=== PATIENT | female | born 1965 | race Caucasian/White ===

== ENCOUNTER 2020-05-23 09:24 | Emergency (ER) | payer OTHER, MEDICAID ==
[~2020-05-23] VITALS: Ht 162.6 cm; Wt 96.0 kg
[2020-05-23 09:33] VITALS: BP 119/79
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
--- NOTE | 2020-05-23 10:44 | RAD ---
EXAM: Lumbar spine CT without contrast. HISTORY: Left lower extremity radiculopathy. Back pain. TECHNIQUE: Computed tomographic images of the lumbar spine were obtained without contrast. Multiplanar reformatting was performed. *One or more of the following individualized dose reduction techniques were utilized for this examination: 1. Automated exposure control. 2. Adjustment of the mA and/or kV according to patient size. 3. Use of iterative reconstruction technique. COMPARISON: None. FINDINGS: There is lumbar scoliosis. There is no listhesis. There is degenerative endplate remodeling with disc space narrowing, osteophytosis, Schmorl's node formation and vacuum phenomenon at L4-L5, and to lesser extent, L5-S1. There is no suspicious osseous lesion. There is no fracture. At L1-L2, there is no stenosis. At L2-L3, there is no stenosis. At L3-L4, there is no stenosis. At L4-L5, there are left paracentral to foraminal and right foraminal to extra foraminal disc osteophyte complexes superimposed on a disc bulge and endplate osteophytosis. There is mild bilateral facet arthropathy. There is moderate right and moderate to severe left foraminal stenosis. There is mild central canal stenosis. At L5-S1, there is a broad-based posterior central disc protrusion superimposed on a disc bulge and endplate osteophytosis. There is moderate right and moderate to severe left foraminal stenosis. IMPRESSION: 1. Multilevel degenerative change involving the lumbar spine, described in detail above. This results in moderate right and moderate to severe left foraminal and mild central canal stenosis an mild central canal stenosis at L4-L5 and moderate right and moderate to severe left foraminal stenosis at L5-S1. 2. No acute osseous finding. Electronically signed by: Alma Delia Alford MD (05/23/2020 10:41 AM) [facility]
== END 2020-05-23 11:15 | disposition home or self-care (01) ==
LOC: ER 09:24
DX: M48.061 Spinal stenosis, lumbar region without neurogenic claudication (principal); G89.29 Other chronic pain; M54.5 Low back pain; M17.12 Unilateral primary osteoarthritis, left knee
CPT/HCPCS: 72131; 99284

== ENCOUNTER 2020-07-19 04:34 | Emergency (ER) | payer MEDICARE, MEDICAID ==
[~2020-07-19] VITALS: Ht 162.6 cm; Wt 96.0 kg
--- NOTE | 2020-07-19 04:47 | PHYS DOC ---
Past History Past Medical History: Arthritis Additional Past Medical Histor: ENLARGED HEART, BLADDER PROBLEMS Alcohol Use: Sober Adult General HPI HPI Patient is a 55-year-old female with a history of anxiety, depression and arthritis who presents with a chief complaint of left eye pain and swelling. States that she noticed some mild redness and swelling yesterday afternoon, and went to bed about 10:00 last night. States she woke up an hour before coming to the emergency department with her eyes swollen shut. States she has generalized dull achy pain, constant in nature, 7 out of 10. States she is able to see out of the eye but light causes her discomfort and causes her to tear up. States she is never had anything like this before. Denies any recent trauma, travels, illnesses, fevers, headache, neck pain, chest pain, shortness of breath, abdominal pain, nausea, vomiting. States that she did see her primary care physician 5 days ago and was told she had shingles on the side of her face and a UTI. States she was started on Keflex for the UTI but nothing else. States that the shingles actually started going away and was almost gone and then this popped up. Review of Systems Review of Systems Review of systems otherwise unremarkable except noted in HPI. Allergies Allergies Allergies Coded Allergies Type Severity Reaction Last Updated Verified quetiapine Allergy Unknown 05/23/20 Yes Physical Exam Physical Exam Constitutional: Well developed, well nourished, no acute distress, non-toxic appearance. [] HENT: Normocephalic, atraumatic, bilateral external ears normal, oropharynx moist, no oral exudates, nose normal. [] Eyes: PERRLA, EOMI, conjunctiva normal, no discharge in the right eye. [] The left eye has conjunctivitis and chemosis with a reactive pupil. Has periorbital swelling, erythema and tenderness. Consensual photophobia. When opening eye patient has grossly normal vision but states it hurts to open her eye. Patient would not allow fluorescein stain exam or Nikko-Pen. Neck: Normal range of motion, no tenderness, supple, no stridor. [] Cardiovascular:Heart rate regular rhythm, no murmur [] Skin: Warm, dry, no erythema, no rash. [] Back: No tenderness, no CVA tenderness. [] Neurologic: Alert and oriented X 3, normal motor function, normal sensory function, no focal deficits noted. [] Psychologic: Affect normal, judgement normal, mood normal. [] EKG EKG [] Radiology/Procedures Radiology/Procedures []MPRESSION: 1. There is left orbit preseptal soft tissue swelling. There is left frontal scalp soft tissue swelling. There is subcutaneous edema and swelling of the left maxilla/cheek. There is subcutaneous edema of the lateral left face superficial to the parotid gland. Findings may be due to cellulitis or trauma. No subcutaneous abscess is seen. 2. No obvious abnormality of the globes or post septal orbits. Electronically signed by: Niraj Olmstead MD (07/19/2020 5:48 AM) [facility] Heart Score Risk Factors: Risk Factors: DM, Current or recent (<one month) smoker, HTN, HLP, family history of CAD, obesity. Risk Scores: Risk Factors: DM, Current or recent (<one month) smoker, HTN, HLP, family history of CAD, obesity. Course & Med Decision Making Course & Med Decision Making Patient is a 55-year-old female who presents with left eye pain, redness and swelling per day. States she was told that she had shingles on the left side of her face 5 days ago that over the last couple of days seemed to resolved Vital signs notable for tachycardia. Physical exam noted above. Patient given morphine for pain started on Unasyn for possible orbital cellulitis and given a dose of valacyclovir for possible zoster ophthalmicus. Patient declined fluorescein exam and Nikko-Pen exam due to pain. Laboratory analysis notable for leukocytosis. CT of the max face notable for significant preseptal cellulitis with facial cellulitis and edema. Discussed all findings with patient and recommended admission/transfer to [facility] for immediate ophthalmological evaluation. Patient grateful, verbalized understanding and agreed with plan of transfer. [] Dragon Disclaimer Dragon Disclaimer This electronic medical record was generated, in whole or in part, using a voice recognition dictation system. Departure Departure: Impression: Primary Impression: Eye pain Additional Impressions: Zoster ophthalmicus Periorbital cellulitis of left eye Facial cellulitis Disposition: 02 DC/TRF OTHER SHORT TERM HOS Condition: IMPROVED Referrals: KRISTIE DORANTES (PCP) Patient Instructions: Periorbital Cellulitis Problem Qualifiers BUFFY HENNESSY MD Jul 19, 2020 04:47
[2020-07-19] MEDS ORDERED: IV NORMAL SALINE 100ML 100 ML ONE (04:50)
[2020-07-19] MEDS ORDERED: MORPHINE SULFATE 4 MG/ML DISP.SYRIN. ONE (04:50)
[2020-07-19] MEDS ORDERED: AMPICILLIN/SULBACTAM 1.5 GM VIAL. IV ONE (04:50)
[2020-07-19] MEDS ORDERED: AMPICILLIN/SULBACTAM 3 GM in IV NORMAL SALINE 100ML 100 ML IV ONE (05:00)
[2020-07-19] MEDS ORDERED: MORPHINE SULFATE 4 MG/ML DISP.SYRIN. IV ONE ×2 (05:00→07:15)
[2020-07-19] MEDS ORDERED: IOHEXOL 300 MG/ML 75 ML VIAL. IV ONE (05:00)
[2020-07-19] MEDS ORDERED: CONTRAST GIVEN. MC PRN (05:00)
[2020-07-19 05:01] LABS: BASO % 0 % (0-3); EOS % 0 % (0-3); HEMATOCRIT 32.6 % (36.0-47.0); HEMOGLOBIN 10.5 g/dL (12.0-15.5); LYMPH # 2.1 x10^3/uL (1.0-4.8); LYMPH % 18 % (24-48); MEAN CORPUSCULAR HEMOGLOBIN 26 pg (25-35); MEAN CORPUSCULAR HGB CONC 32 g/dL (31-37); MEAN CORPUSCULAR VOLUME 80 fL (79-100); MONO # 1.2 x10^3/uL (0.0-1.1); MONO % 10 % (0-9); NEUT # 8.5 x10^3uL (1.8-7.7); NEUT % 71 % (31-73); PLATELET COUNT 337 x10^3/uL (140-400); RED BLOOD COUNT 4.08 x10^6/uL (3.50-5.40); RED CELL DISTRIBUTION WIDTH 16.1 % (11.5-14.5)
[2020-07-19 05:09] LABS: CALCIUM 9.4 mg/dL (8.5-10.1); CREATININE 0.8 mg/dL (0.6-1.0); GFR 74.7; POTASSIUM 3.6 mmol/L (3.5-5.1)
[2020-07-19 05:25] LABS: % LYMPHS 17 % (24-48); % MONOS 9 % (0-10); % SEGS 74 % (35-66); PLT ESTIMATE ADEQUATE (ADEQUATE)
[2020-07-19 05:26] LABS: TOXIC GRANULATION SLIGHT
[2020-07-19] MEDS ORDERED: IV RINGERS SOLUTION,LACTATED 1,000 ML IV ONE (05:30)
[2020-07-19] MEDS ORDERED: valACYclovir 500 MG TABLET. PO ONE (05:30)
--- NOTE | 2020-07-19 05:51 | RAD ---
CT MAXILLOFACIAL WITHOUT CONTRAST History: Reason: orbital cellulitis, pain, swelling, shingles Technique: Axial helical images of the face were obtained after 75 cc of Omnipaque 300 IV contrast. A xial and coronal reconstruction was performed. Findings: Image quality is mildly degraded due to motion artifact. Visualized brain is without midline shift or mass effect. There is soft tissue swelling of the left f rontal scalp. There is left orbit preseptal soft tissue swelling. There is no obvious abnormality of the globes. No obvious abnormality of the post septal orbits is seen. There is subcutaneous edema and soft tissue swelling of the left maxilla/cheek. No subcutaneous abscess is appreciated. Paranasal sinuses are essentially clear. The mastoid air cells are aerated. No acute facial bone frac ture is identified. There is grade 1 anterolisthesis of C2 on C3 and C3 on C4. There is degenerative endplate spurring of C4/C5 and C5/C6. There is upper cervical facet hypertrophy, worse on the left. There are subcentimeter bilateral submandibular lymph nodes. There is subcutaneous edema lateral to t he left parotid gland. No hyperenhancement of the parotid gland is identified. There is a tiny probab le intraparotid lymph node on the left. IMPRESSION: 1. There is left orbit preseptal soft tissue swelling. There is left frontal scalp soft tissue swell ing. There is subcutaneous edema and swelling of the left maxilla/cheek. There is subcutaneous edema of the lateral left face superficial to the parotid gland. Findings may be due to cellulitis or traum a. No subcutaneous abscess is seen. 2. No obvious abnormality of the globes or post septal orbits. Electronically signed by: Niraj Olmstead MD (07/19/2020 5:48 AM) [facility]
[2020-07-19 07:00] VITALS: BP 151/97
== END 2020-07-19 09:15 | disposition short-term general hospital (02) ==
LOC: ER 04:34
DX: L03.213 Periorbital cellulitis (principal); L03.211 Cellulitis of face; B02.30 Zoster ocular disease, unspecified; H57.12 Ocular pain, left eye; M19.90 Unspecified osteoarthritis, unspecified site; Z88.8 Allergy status to other drugs, medicaments and biological substances
CPT/HCPCS: 36415; 70487; 80048; 85007; 85025; 87040; 96361; 96365; 96375; 96376; 99285; J0295; J2270; J7120; Q9967

== ENCOUNTER → 2021-06-10 | Outpatient (CLI) | payer MEDICAID, MEDICARE | LOC: LAB 08:17 | PROVIDERS: ATTEND Family Medicine | DX: K21.9 Gastro-esophageal reflux disease without esophagitis (principal) | CPT/HCPCS: 36415 ==

== ENCOUNTER → 2021-08-25 | Outpatient (CLI) | payer MEDICARE, OTHER ==
--- NOTE | 2021-08-25 16:08 | RAD ---
XR FOOT_RIGHT 2 VIEWS Clinical Indication: Reason: FOOT PAIN, NKI / Spl. Instructions: / History: Comparison: None. Findings: There is moderate arthropathy of the first MTP joint. There are degenerative changes of the sesamoids . The alignment is maintained. There is tiny inferior calcaneal bone spur. There is no dorsal soft ti ssue swelling of the foot. There is mild soft tissue swelling medial to the first MTP. There is no ac flo fracture. IMPRESSION: Moderate arthropathy of the first MTP joint. Electronically signed by: Niraj Olmstead MD (08/25/2021 4:06 PM) [id number]
== END ==
LOC: RAD 12:07
PROVIDERS: ATTEND Family Medicine
DX: M19.071 Primary osteoarthritis, right ankle and foot (principal); M77.31 Calcaneal spur, right foot; M79.89 Other specified soft tissue disorders; F41.9 Anxiety disorder, unspecified
CPT/HCPCS: 73620